=== PATIENT | female | born 1965 ===

== ENCOUNTER 2020-05-15 09:11 | Inpatient (IN) | payer OTHER ==
[~2020-05-15] VITALS: Ht 162.6 cm; Wt 89.8 kg
[~2020-05-15 09:11] MED LIST: ALPRAZOLAM XR0.5 MG PO; AMLODI PO; BENICAR20 MG PO; BYSTOLIC20 MG PO
[2020-05-16] MEDS ORDERED: INTESTINEX680 M1 (08:24)
[2020-05-16] MEDS ORDERED: NORVASC2.5 MG (08:24)
[2020-05-16] MEDS ORDERED: ALPRAZOLAM1 MG (08:25)
[2020-05-16] MEDS ORDERED: DICYCLOMINE HCL20 MG (08:25)
[2020-05-16] MEDS ORDERED: TOLTERODINE TART4 MG (08:25)
== END 2020-05-16 10:37 | disposition home or self-care (01) | DRG 743 ==
LOC: CIR.AMB 09:11 → O/R 18:56 → SURH 19:40 → SURG 20:43
PROVIDERS: ADMIT Obstetrics & Gynecology; ATTEND Obstetrics & Gynecology
PROC: 0UT2FZZ Resection of Bilateral Ovaries, Via Natural or Artificial Opening With Percutaneous Endoscopic Assistance (ICD-10-PCS; 2020-05-15)
PROC: 0UT7FZZ Resection of Bilateral Fallopian Tubes, Via Natural or Artificial Opening With Percutaneous Endoscopic Assistance (ICD-10-PCS; 2020-05-15)
PROC: 0UT9FZZ Resection of Uterus, Via Natural or Artificial Opening With Percutaneous Endoscopic Assistance (ICD-10-PCS; principal; 2020-05-15 07:00)
DX: D25.1 Intramural leiomyoma of uterus (principal); D25.2 Subserosal leiomyoma of uterus; N72 Inflammatory disease of cervix uteri; N83.8 Other noninflammatory disorders of ovary, fallopian tube and broad ligament; N95.0 Postmenopausal bleeding; R10.2 Pelvic and perineal pain; I10 Essential (primary) hypertension